=== PATIENT | male | born 1995 | race Caucasian/White ===

== ENCOUNTER 2023-07-06 23:12 | Emergency (ER) | payer OTHER ==
[~2023-07-06] VITALS: Ht 180.3 cm; Wt 74.8 kg
[2023-07-06 23:35] VITALS: BP 142/113; PULSE 75; RESP 18; TEMP 98.5; O2SAT 97
[2023-07-07] MEDS: LORazepam 1 MG TAB PO ONE (01:17)
[2023-07-07] MEDS ORDERED: ESCI20TA PO (02:26)
== END 2023-07-07 02:28 | disposition home or self-care (01) ==
LOC: MED 23:12
DX: F41.9 Anxiety disorder, unspecified (principal); J45.909 Unspecified asthma, uncomplicated; Z79.899 Other long term (current) drug therapy
CPT/HCPCS: 99283

== ENCOUNTER 2023-08-28 22:10 | Emergency (ER) | payer OTHER ==
[~2023-08-28] VITALS: Ht 180.3 cm; Wt 81.6 kg
[~2023-08-28 22:10] MED LIST: ESCI20TA PO
[2023-08-28 22:41] VITALS: RESP 18; TEMP 97.6; O2SAT 98
== END 2023-08-29 02:17 | disposition left against medical advice (07) ==
LOC: MED 22:10
DX: F41.9 Anxiety disorder, unspecified (principal); Z53.21 Procedure and treatment not carried out due to patient leaving prior to being seen by health care provider